=== PATIENT | male | born 1945 | race Caucasian/White ===

== ENCOUNTER 2017-03-16 13:12 | Emergency (ER) | payer MEDICARE, BC ==
[2017-03-16] MEDS ORDERED: Morphine INJ* 4 MG/ML 1 ML SYRINGE IV ONE ×3 (13:29→14:27)
[2017-03-16] MEDS ORDERED: Ondansetron INJ* 2 MG/ML VIAL IV ONE (13:29)
[2017-03-16 14:04] LABS: Hematocrit 45 % (42-52); Hemoglobin 14.5 g/dl (14.0-18.0); Mean Corpuscular HGB Conc 33 g/dl (31-36); Mean Corpuscular Hemoglobin 31 pg (27-31); Mean Corpuscular Volume 94 fL (80-94); Mean Platelet Volume 9 um3 (7.4-10.4); Red Blood Count 4.73 10^6/ul (4.0-5.4); Red Cell Distribution Width 14 % (10.5-15); White Blood Count 11.1 10^3/ul (3.5-10.8)
[2017-03-16 14:16] LABS: Albumin 4.4 g/dL (3.2-5.2); BUN/Creatinine Ratio 17.6 (8-20); C Reactive Protein 1.11 mg/L (< 5.00); Calcium 9.5 mg/dL (8.6-10.3); EGFR Non-African American 66.8 (>60); Globulin 2.8 g/dL (2-4); Potassium 4.2 mmol/L (3.5-5.0); Total Bilirubin 0.5 mg/dL (0.2-1.0); Total Protein 7.2 g/dL (6.4-8.9)
[2017-03-16] MEDS ORDERED: NS 0.9% 1000 ML* 1,000 ML IV ONE (14:45)
[2017-03-16] MEDS ORDERED: fentaNYL* 50 MCG/ML 2 ML VIAL (100 MCG VIAL) IV SLOW PU ONE (14:45)
--- NOTE | 2017-03-16 14:50 | RAD ---
Indication: Ankle pain after a fall Comparison: None. Technique: AP and lateral views right lower leg. Report: On the lateral view of the lower leg and ankle the tibia is displaced anteriorly relative to the talar dome. There is a posterior tibial fracture displaced from the tibia. More proximally there is a spiral fracture of the fibula involving the proximal metaphysis of the bone. There is asymmetric widening of the joint space of the medial malleolus with the tibia displaced medially relative to the talar down. IMPRESSION: Radiographic findings appear to be most consistent with a right lower leg and ankle Maisonneuve fracture.
--- NOTE | 2017-03-16 15:57 | RAD ---
INDICATION: The patient is status post reduction and splint application COMPARISON: Same day radiograph acquired at 1300 hours TECHNIQUE: 3 views of the right ankle were obtained. FINDINGS: Evaluation of the bones is somewhat obscured after application of an external splint. There has been interval reduction of the dislocated tibiotalar joint. A potential posterior tibial fracture is only faintly visible on this radiograph. The ankle mortise appears to be anatomically aligned. IMPRESSION: INTERVAL REDUCTION STATUS POST EXTERNAL SPLINT APPLICATION.
--- NOTE | 2017-03-16 16:03 | CONS ---
CONSULTATION NOTE: DATE OF CONSULT: 03/16/17 - EMERGENCY DEPT HISTORY OF PRESENT ILLNESS: Mr. Joel is a 72-year-old gentleman who was on a step- ladder today around noon. He fell and sustained a fracture dislocation of his right ankle. This was a posterolateral everted injury with a high fibula. He came to the emergency room with the foot still in the dislocated position. Mr. Joel is a 72-year-old diabetic male who has had a 6-part bypass in 2001. He is a diabetic, on metformin. He has sleep apnea. He has a history of kidney stones and he is on 3 different hypertensive medications. SOCIAL HISTORY: He does not smoke, does not drink. He is a retired state patrol police lieutenant. PHYSICAL EXAM: On examination, he is a heavyset male in no acute distress. He is lying on the stretcher with his ankle externally rotated. It is a warm foot. He has intact sensation. DIAGNOSTIC STUDIES/LAB DATA: His radiographs show a PLR 4 type ankle fracture dislocation with a high fibula. Skin is intact. Under local anesthetic with some lidocaine injected into the tibiotalar joint, I reduced the ankle and splinted it. Dr. Crane assisted. Postreduction x-rays show excellent reduction of the tibiotalar joint. The patient will be discharged home for elevation with elective fixation in the OR, schedule to follow. [id number]/[facility] #: [id number] MTDD
--- NOTE | 2017-03-16 16:24 | ED ---
Porfirio Kovacs Alok, scribed for Darwin Crane MD on 03/16/17 at 1329 . Lower Extremity - HPI Summary HPI Summary: 72M presents to the ED with right ankle pain after falling 4-5 feet off a ladder which fell while he was attempting to adjust his AC unit from outside. Pt states that after the ladder fell, the pt landed on his feet and fell forward to his knees, twisting his right ankle in the process. Pt is unsure of which direction he twisted his right ankle. Pt denies impact to back, hip, head , or neck. Pt denies LOC. Pt last ate at 0900. PSHx includes CABG. Pt takes an aspirin. - History of Current Complaint Chief Complaint: EDExtremityLower Stated Complaint: RT ANKLE INJURY Time Seen by Provider: 03/16/17 13:22 Hx Obtained From: Patient Mechanism Of Injury: Fall From Height Of: - 4-5 ft Onset of Pain: Immediate Onset/Duration: Still Present Severity Initially: Moderate Severity Currently: Moderate Timing: Constant Location: Is Discrete @ - right ankle Associated Signs And Symptoms: Positive: Other - right ankle pain. Negative: Syncope Alleviating Factor(s): Other - Allergies/Home Medications Allergies/Adverse Reactions: Allergies Allergy/AdvReac Type Severity Reaction Status Date / Time Atorvastatin [From Lipitor] Allergy MUSCLE Verified 04/09/15 19:55 SPASMS SODIUM PENTOTHAL Allergy STOPPED Uncoded 04/09/15 19:55 BREATHING PMH/Surg Hx/FS Hx/Imm Hx Endocrine/Hematology History: Reports: Hx Diabetes Cardiovascular History: Reports: Hx Coronary Artery Disease - QUADRUPLE CARDIAC BYPASS - 2002, Hx Hypertension - CONTROL WITH MEDICATION, Other Cardiovascular Problems/Disorders Respiratory History: Reports: Hx Sleep Apnea GI History: Reports: Hx Gastroesophageal Reflux Disease - OCCASIONAL ACID REFLUX History: Reports: Hx Kidney Stones - BILATERAL, Other Problems/Disorders - ENLARGE PROSTATE Sensory History: Reports: Hx Contacts or Glasses - GLASSES - READING, Hx Hearing Aid - DOES NOT WEAR Opthamlomology History: Reports: Hx Contacts or Glasses - GLASSES - READING - Surgical History Surgery Procedure, Year, and Place: RENAL STONES LITHO/OPEN HEART. RIO Hx Anesthesia Reactions: Yes - SODIUM PENTOTHAL - STOPPED BREATHING AGE 10 Infectious Disease History: Denies: Traveled Outside the [place] in Last 30 Days - Family History Known Family History: Negative: Cardiac Disease, Hypertension, Diabetes - Social History Occupation: Retired Lives: With Family Alcohol Use: None Substance Use Type: Reports: None Smoking Status (MU): Never Smoked Tobacco Review of Systems Negative: Fever Positive: Other - right ankle pain All Other Systems Reviewed And Are Negative: Yes Physical Exam - Summary Physical Exam Summary: VITAL SIGNS: Reviewed. GENERAL: Patient is an obese male who is lying comfortable in the stretcher. Patient is not in any acute respiratory distress. HEAD AND FACE: No signs of trauma. No ecchymosis, hematomas or skull depressions. No sinus tenderness. EYES: PERRLA, EOMI x 2, No injected conjunctiva, no nystagmus. EARS: Hearing grossly intact. Ear canals and tympanic membranes are within normal limits. MOUTH: Oropharynx within normal limits. NECK: Supple, trachea is midline, no adenopathy, no JVD, no carotid bruit, no c- spine tenderness, neck with full ROM. CHEST: Symmetric, no tenderness at palpation LUNGS: Clear to auscultation bilaterally. No wheezing or crackles. CVS: Regular rate and rhythm, S1 and S2 present, no murmurs or gallops appreciated. ABDOMEN: Soft, non-tender. No signs of distention. No rebound no guarding, and no masses palpated. Bowel sounds are normal. EXTREMITIES: Deformity right ankle and tibiofibular. Good pulses and capillary refill. NEURO: Alert and oriented x 3. No acute neurological deficits. Speech is normal and follows commands. SKIN: Dry and warm Triage Information Reviewed: Yes Vital Signs On Initial Exam: Initial Vital Signs Temp 97.7 F 03/16/17 13:27 Pulse 81 03/16/17 13:27 Resp 18 03/16/17 13:27 BP 121/71 03/16/17 13:27 Pulse Ox 94 03/16/17 13:27 Vital Signs Reviewed: Yes Diagnostics - Vital Signs Vital Signs Temp Pulse Resp BP Pulse Ox 03/16/17 15:30 76 130/67 95 03/16/17 15:00 73 126/72 93 03/16/17 14:50 16 03/16/17 14:31 18 03/16/17 14:30 74 124/64 94 03/16/17 14:02 76 20 112/64 93 03/16/17 14:00 77 94 03/16/17 13:47 16 03/16/17 13:34 138/104 03/16/17 13:31 83 95 03/16/17 13:27 97.7 F 81 18 121/71 94 - Laboratory Lab Results: Lab Results 03/16/17 03/16/17 Range/Units 13:50 13:50 WBC 11.1 H (3.5-10.8) 10^3/ul RBC 4.73 (4.0-5.4) 10^6/ul Hgb 14.5 (14.0-18.0) g/dl Hct 45 (42-52) % MCV 94 (80-94) fL MCH 31 (27-31) pg MCHC 33 (31-36) g/dl RDW 14 (10.5-15) % Plt Count 168 (150-450) 10^3/ul MPV 9 (7.4-10.4) um3 Neut % (Auto) 82.0 (38-83) % Lymph % (Auto) 6.7 L (25-47) % Swift % (Auto) 8.9 (1-9) % Eos % (Auto) 2.2 (0-6) % Baso % (Auto) 0.2 (0-2) % Absolute Neuts (auto) 9.1 H (1.5-7.7) 10^3/ul Absolute Lymphs (auto) 0.7 L (1.0-4.8) 10^3/ul Absolute Monos (auto) 1.0 H (0-0.8) 10^3/ul Absolute Eos (auto) 0.2 (0-0.6) 10^3/ul Absolute Basos (auto) 0 (0-0.2) 10^3/ul Absolute Nucleated RBC 0 10^3/ul Nucleated RBC % 0 Sodium 138 (133-145) mmol/L Potassium 4.2 (3.5-5.0) mmol/L Chloride 105 (101-111) mmol/L Carbon Dioxide 24 (22-32) mmol/L Anion Gap 9 (2-11) mmol/L BUN 19 (6-24) mg/dL Creatinine 1.08 (0.67-1.17) mg/dL Est GFR ( Amer) 86.0 (>60) Est GFR (Non-Af Amer) 66.8 (>60) BUN/Creatinine Ratio 17.6 (8-20) Glucose 137 H (70-100) mg/dL Calcium 9.5 (8.6-10.3) mg/dL Total Bilirubin 0.50 (0.2-1.0) mg/dL AST 28 (13-39) U/L ALT 30 (7-52) U/L Alkaline Phosphatase 83 (34-104) U/L C-Reactive Protein 1.11 (< 5.00) mg/L Total Protein 7.2 (6.4-8.9) g/dL Albumin 4.4 (3.2-5.2) g/dL Globulin 2.8 (2-4) g/dL Albumin/Globulin Ratio 1.6 (1-3) Result Diagrams: 03/16/17 13:50 03/16/17 13:50 Lab Statement: Any lab studies that have been ordered have been reviewed, and results considered in the medical decision making process. - Radiology Lower Extremity XRAY Xray Interpretation: Positive (See Comments) - IMPRESSION: Radiographic findings appear to be most consistent with a right lower leg and ankle Maisonneuve fracture. Radiology Interpretation Completed By: Radiologist Ankle XRAY Xray Interpretation: Positive (See Comments) - IMPRESSION: INTERVAL REDUCTION STATUS POST EXTERNAL SPLINT APPLICATION. Radiology Interpretation Completed By: Radiologist Lower Extremity Course/Dx - Course Course Of Treatment: 72M presents to the ED with right ankle pain after falling 4-5 feet off a ladder which fell while he was attempting to adjust his AC unit from outside. Pt states that after the ladder fell, the pt landed on his feet and fell forward to his knees, twisting his right ankle in the process. Pt is unsure of which direction he twisted his right ankle. Pt denies impact to back, hip, head, or neck. Pt denies LOC. Pt last ate at 0900. PSHx includes CABG. Pt takes an aspirin. Blood work within nml limits except Glucose 137 H. Lower extremity Xray shows "Radiographic findings appear to be most consistent with a right lower leg and ankle Maisonneuve fracture." Dr. Andersen from orthopedics came and reduced fracture. Meantime pt was given 2 doses of Morphine and 1 dose of fentnyl for pain. Post reduction ankle Xray shows "INTERVAL REDUCTION STATUS POST EXTERNAL SPLINT APPLICATION." Ganesh recommended discharge home with FU at his office. Pt is alert and oriented and agrees. - Diagnoses Differential Diagnosis/HQI/PQRI: Positive: Fracture (Closed), Sprain, Strain, Tenosynovitis Provider Diagnoses: Tibia/fibula fracture with dislocation - Physician Notifications Discussed Care Of Patient With: Olivier Andersen - Will come and assist in fracture reduction Time Discussed With Above Provider: 15:18 Discharge - Discharge Plan Condition: Stable Disposition: HOME Prescriptions: HYDROcodone/ACETAMIN 5-325 MG* [Garwood 5-325 TAB*] 1 tab PO Q6H PRN #12 tab MDD 4 tabs/day PRN Reason: Pain Patient Education Materials: Ankle Fracture (ED), Ankle Dislocation (ED) Referrals: Екатерина Trujillo MD [Primary Care Provider] - The documentation as recorded by the Porfirio hwang Alok accurately reflects the service I personally performed and the decisions made by Royce morgan Walter, MD.
[2017-03-16 17:01] VITALS: BP 130/67
== END 2017-03-16 16:54 | disposition home or self-care (01) ==
LOC: ED 13:12
DX: M25.571 Pain in right ankle and joints of right foot (principal); S82.401A Unspecified fracture of shaft of right fibula, initial encounter for closed fracture; W11.XXXA Fall on and from ladder, initial encounter; Y93.9 Activity, unspecified; Y92.9 Unspecified place or not applicable; Y99.9 Unspecified external cause status
CPT/HCPCS: 36415; 80053; 85025; 86140; 96374; 96375; 99285; J2270; J2405; J3010

== ENCOUNTER 2017-03-18 13:57 | Day surgery (SDC) | payer MEDICARE, BC ==
[2017-03-18] MEDS ORDERED: Buffered Lidocaine 0.9% SYRIN* 5 ML/SYR SYRINGE ONE (14:16)
[2017-03-18] MEDS ORDERED: Sodium Citrate/Citric Acid* 15 ML UDC ONE (15:04)
[2017-03-18] MEDS ORDERED: ceFAZolin 2 GM PREMIX(*) 2 GM/50 ML BAG IVPB ONE (15:34)
[2017-03-18] MEDS ORDERED: Midazolam* 1 MG/ML 2 ML VIAL (2 MG) ONE ×2 (15:48→16:09)
[2017-03-18] MEDS ORDERED: Ondansetron INJ* 2 MG/ML VIAL IV PRN (17:14)
--- NOTE | 2017-03-18 18:32 | RAD ---
INDICATION: ORIF right ankle COMPARISON: Right ankle March 16, 2017 FINDINGS: 4.8 seconds of fluoroscopy were provided for the orthopedics department. Fluoroscopic spot imaging of the right ankle were obtained for operative control and show ORIF of the ankle fracture . CPT II Codes: 6045F (fluoro time doc)
[2017-03-18] MEDS ORDERED: oxyCODONE TAB* 5 MG TAB ONE (19:57)
[2017-03-18] MEDS ORDERED: fentaNYL* 50 MCG/ML 2 ML VIAL (100 MCG VIAL) ONE (20:02)
[2017-03-18] MEDS: fentaNYL* 50 MCG/ML 2 ML VIAL (100 MCG VIAL) IV PRN ×4 (20:04→20:41)
[2017-03-18] MEDS ORDERED: Ibuprofen TAB* 600 MG ONE (20:18)
[2017-03-18] MEDS ORDERED: Acetaminophen ADULT LIQ* 650 MG/20.3 ML UDC ONE (20:18)
[2017-03-18] MEDS ORDERED: Morphine INJ* 4 MG/ML 1 ML SYRINGE ONE (20:43)
[2017-03-18 21:34] VITALS: BP 123/69
[2017-03-18] MEDS ORDERED: oxyCODONE TAB* 5 MG TAB PO PRN ×2 (21:43)
[2017-03-18] MEDS ORDERED: Morphine INJ* 2 MG/ML 1 ML SYRINGE IV PRN (21:44)
[2017-03-18] MEDS ORDERED: Acetaminophen TAB* 325 MG PO PRN (21:44)
[2017-03-18] MEDS ORDERED: Ibuprofen TAB* 600 MG PO PRN (21:47)
--- NOTE | 2017-03-19 08:41 | OP ---
DATE OF OPERATION: 03/18/17 - [facility] DATE OF : 41 SURGEON: Olivier Andersen MD BOOT AND SADDLE REPAIR PERSON: Enid Cool PA-C ANESTHESIOLOGIST: Kevin Sousa DO ANESTHESIA: Spinal PRE-OP DIAGNOSIS: PLR4 right ankle fracture. POST-OP DIAGNOSIS: PLR4 right ankle fracture. OPERATIVE PROCEDURE: Internal fixation and reduction of the right syndesmosis. DESCRIPTION OF PROCEDURE: The patient was taken to the operating room where spinal anesthetic and thigh tourniquet administered, in the left lateral decubitus position, we opened up longitudinally over the distal fibula. We incised directly over the anterior aspect of the fibula to visualize the torn syndesmosis. Using a point reduction clamp, we pulled distally, internally rotating and compressing and then pinning this temporarily. We then used a 5- hole Recon plate along the posterolateral aspect of the fibula with four cortical 3.5-mm cortical screws. X-ray intraoperatively showed satisfactory position of the mortise and the hardware. We then irrigated thoroughly closing with 2-0 Vicryl, bobby for the skin, and compression dressing plaster splint applied. [id number]/[facility] #: [id number] MTDD
== END 2017-03-18 21:50 | disposition home or self-care (01) ==
LOC: OR 13:57
PROVIDERS: ATTEND Orthopaedic Surgery
DX: S82.891A Other fracture of right lower leg, initial encounter for closed fracture (principal); E11.8 Type 2 diabetes mellitus with unspecified complications; G47.30 Sleep apnea, unspecified; R94.31 Abnormal electrocardiogram [ECG] [EKG]; W11.XXXA Fall on and from ladder, initial encounter; Y93.9 Activity, unspecified; Y92.9 Unspecified place or not applicable; Z95.1 Presence of aortocoronary bypass graft; Z87.442 Personal history of urinary calculi; Z79.84 Long term (current) use of oral hypoglycemic drugs
CPT/HCPCS: 76000; 93005; A9270-GY; C1713; C1776; J0690; J2250; J2270; J3010

== ENCOUNTER 2017-08-21 06:07 | Day surgery (SDC) | payer MEDICARE, BC ==
[~2017-08-21 06:07] MED LIST: Buffered Lidocaine 0.9% SYRIN* 5 ML/SYR SYRINGE INTRADERM ONE; Dexamethasone IV* 4 MG/ML 1 ML (4 MG) IV SLOW PU ONE
[2017-08-21] MEDS ORDERED: ceFAZolin 1 GM ADVAN(*) 1 GM ADDV.VIAL IVPB ONE (06:40)
[2017-08-21] MEDS ORDERED: ceFAZolin 2 GM PREMIX (*) 2 GM/50 ML BAG IVPB ONE (06:40)
[2017-08-21] MEDS ORDERED: Dexamethasone IV* 4 MG/ML 1 ML (4 MG) ONE ×2 (06:40→06:41)
[2017-08-21] MEDS ORDERED: Buffered Lidocaine 0.9% SYRIN* 5 ML/SYR SYRINGE ONE (06:40)
[2017-08-21] MEDS ORDERED: Chloroprocaine 2%* 20 ML VIAL ONE (07:33)
[2017-08-21] MEDS ORDERED: Propofol* 10 MG/ML 20 ML BTL IV PUSH ONE (07:33)
[2017-08-21] MEDS ORDERED: Midazolam* 1 MG/ML 5 ML VIAL (5 MG) ONE (07:33)
[2017-08-21] MEDS ORDERED: Ondansetron INJ* 2 MG/ML VIAL ONE (07:33)
[2017-08-21] MEDS ORDERED: EPHEDrine (Pressors)* 50 MG/ML VIAL ONE (07:33)
[2017-08-21] MEDS ORDERED: Phenylephrine IV* 40 MCG/ML 10 ML SYRINGE ONE (07:34)
[2017-08-21] MEDS ORDERED: fentaNYL* 50 MCG/ML 2 ML VIAL (100 MCG VIAL) IV PRN (08:23)
[2017-08-21] MEDS ORDERED: Ondansetron INJ* 2 MG/ML VIAL IV PRN (08:23)
[2017-08-21] MEDS ORDERED: DiMENhydriNATE IV* 50 MG/ML VIAL IV PUSH PRN (08:23)
[2017-08-21] MEDS ORDERED: HYDROmorphone INJ* 1 MG/ML CARPUJECT SYRINGE IV PRN (08:23)
[2017-08-21] MEDS ORDERED: oxyCODONE/Acetamin 5/325 MG* TAB ONE (09:53)
[2017-08-21] MEDS: oxyCODONE/Acetamin 5/325 MG* TAB PO PRN ×2 (09:54→09:55)
[2017-08-21 11:33] VITALS: BP 136/75
--- NOTE | 2017-08-21 20:24 | RAD ---
CPT II Codes: 6045F INDICATION: ORIF of the right ankle TECHNIQUE: Intraoperative fluoroscopy was provided during removal of right ankle hardware. FINDINGS: 3 spot films depict right ankle status post removal of hardware. Fluoroscopy time: 8.9 seconds IMPRESSION: As above.
--- NOTE | 2017-08-26 00:29 | OP ---
DATE OF OPERATION: 08/21/17 [facility] DATE OF : 41 SURGEON: Austen Miller MD LAMP WIRER: DREW Bethea. A physician orthodontic technician assistant was required for the length of the procedure for positioning and retraction. ANESTHESIOLOGIST: Ralph Jaramillo MD ANESTHESIA: Spinal anesthesia. PRE-OP DIAGNOSES: 1. Painful, loose hardware, retained, right ankle syndesmosis. 2. Fracture, intraarticular, comminuted, mildly displaced right distal tibial plafond. 3. Status post open reduction internal fixation, right ankle syndesmosis, 03/18, by Dr. Olivier Andersen. POST-OP DIAGNOSES: 1. Painful, loose hardware, retained, right ankle syndesmosis. 2. Fracture, intraarticular, comminuted, mildly displaced right distal tibial plafond. 3. Status post open reduction internal fixation, right ankle syndesmosis, 03/18, by Dr. Olivier Andersen. OPERATIVE PROCEDURE: Removal of hardware, right ankle syndesmosis. INDICATIONS: The patient is a 72-year-old man who sustained a right ankle dislocation with a Maisonneuve fracture on 03/16/17. He underwent an open reduction internal fixation syndesmosis with a lateral plate and 4 syndesmotic screws on 03/18/[address] Olivier Andersen, my partner. The patient had been doing well postoperatively and most recently had been weightbearing as tolerated. There are some questions about the patient's compliance in the early postoperative period. On approximately 08/12/17, the patient noted a new pain about the right ankle. Not associated with a new injury. The pain was present only with weightbearing. There was an increase in soft tissue swelling about the ankle and the patient started limping. The patient has peripheral neuropathy secondary to his diabetes but did not have pain in his foot as much as in the ankle. I saw the patient in clinic on 08/14/17. The patient did have soft tissue swelling about the ankle. Passive dorsiflexion of the ankle caused increased discomfort. X-ray imaging demonstrated lucency about multiple syndesmotic screws and appeared to show an intra-articular tibial plafond fracture. I compared to radiographs from that day compared to prior radiographs and it appeared there certainly had been a fracture distal to the distal most screw. I placed the patient into a tall walking boot in clinic. I signed him up for surgery, removal of hardware. I spoke with Dr. Olivier Andersen to confirm the plan with him. That was actually by text. I ultimately obtained a CT scan of the right ankle to determine if open reduction internal fixation of fracture fragment was feasible. A CT scan was reviewed preoperatively and showed a comminuted intraarticular fracture of the tibial plafond. The displaced fragments were central rather than being directly anterior or posterior. There were also already significant degenerative changes, joint space narrowing about the ankle joint. Therefore, the patient was not a candidate for open reduction internal fixation. Therefore , he was booked only for a removal of hardware. ANTIBIOTICS: Ancef 3 g IV. IV FLUIDS: 1400 cc crystalloid. TOURNIQUET TIME: 27 minutes at 300 mmHg. COMPLICATIONS: None. SPECIMEN: Hardware was extracted and will be processed for return to the patient. IMPLANTS: None. DESCRIPTION OF PROCEDURE: Preoperatively, I reviewed with the patient, the risks and potential complications of the procedure including bleeding, infection , nerve or blood vessel injury, blood clot, ankle pain, stiffness, osteoarthritis. In preoperative holding, I had the patient sign the surgical consent. In preoperative holding, I marked the patient's operative extremity. I noted the patient had a very small scab, several millimeters, about the medial aspect of the distal lower leg. There were some trace, several millimeters of erythema about it. This region in the lower leg was sensate but was not tender to palpation. No clear cellulitis. This was far from the surgical incision planned. The patient was brought back to the operating room and placed supine on the operating room table. General anesthesia was utilized. A tourniquet was placed about the right proximal thigh. The right lower extremity was prepped and draped. A Bone Foam device was placed under the right lower extremity and the right hemipelvis had had blankets placed under it to put the lower extremity in a neutral rotation. Surgical time-out was performed. An Esmarch was applied and the tourniquet was elevated to 300 mmHg. The prior surgical incision scar was noted. I created a new incision on much of the length of the prior incision scar. I exchanged surgical blades and continued through the subcutaneous tissue. I then continued with spreading dissection down to the plate and distal fibula and lateral malleolus. I uncovered the plate using a periosteal elevator. No nerves were encountered. Four screws were removed from the plate. Then, syndesmotic plate was removed. I used a small curette and curetted the tracks of all 4 screws through the fibula and tibia to encourage healing and remove any fibrous material present. I performed a gravity stress test and a Cotton test. Both showed no increased gapping, significant, of the medial clear space or of the tibia-fibular clear space and overlapped spaces. Irrigation of the wound. Closure of some deep tissue with figure-of-8 stitches using Vicryl 2-0 suture. This was in deep fascia. Closure of the subcutaneous tissue with buried simple stitches using Vicryl 3-0 suture. Closure of the skin with bobby. Xeroform was applied followed by sterile 4x4's, followed by sterile Webril, followed by nonsterile Webril. I then placed a splint with first a posterior component and then a sugar tong medial and lateral component, overwrapped in Gio bandage. The patient was awakened and transferred to the PACU. DISPOSITION: The patient is to be non or minimal weight bearing. Percocet as needed for pain control. Keflex for 7 days for infection prophylaxis. The patient will follow up with me in 10 to 14 days postoperatively. This will be for wound check, removal of bobby. While I generally place removal of hardware, Syndesmotic screw patients into tall walking boots postoperatively, I chose to place this patient in a splint. That is because he also has a fracture of the tibial plafond and I thought it preferable to slow down the patient. The patient and his both admitted preoperatively that the patient would likely not be compliant with wearing a tall walking boot. [id number]/[facility] #: [id number] [facility] HOSPITALTracey
== END 2017-08-21 12:00 | disposition home or self-care (01) ==
LOC: OR 06:07
PROVIDERS: ATTEND Orthopaedic Surgery
DX: T84.84XA Pain due to internal orthopedic prosthetic devices, implants and grafts, initial encounter (principal); S82.871A Displaced pilon fracture of right tibia, initial encounter for closed fracture; S82.861D Displaced Maisonneuve's fracture of right leg, subsequent encounter for closed fracture with routine healing; E11.40 Type 2 diabetes mellitus with diabetic neuropathy, unspecified; Z79.84 Long term (current) use of oral hypoglycemic drugs; I10 Essential (primary) hypertension; I25.2 Old myocardial infarction; G47.33 Obstructive sleep apnea (adult) (pediatric); Z95.1 Presence of aortocoronary bypass graft; X58.XXXD Exposure to other specified factors, subsequent encounter; Y92.9 Unspecified place or not applicable; Y79.2 Prosthetic and other implants, materials and accessory orthopedic devices associated with adverse incidents; X58.XXXA Exposure to other specified factors, initial encounter; Z88.8 Allergy status to other drugs, medicaments and biological substances
CPT/HCPCS: 76000; 88300; A9270-GY; J0690; J1100; J2250; J2400; J2405; J2704

== ENCOUNTER 2018-09-16 12:08 | Day surgery (SDC) | payer MEDICARE, BC ==
[~2018-09-16 12:08] MED LIST changes: -Dexamethasone IV* 4 MG/ML 1 ML (4 MG) IV SLOW PU ONE; +Famotidine IV* 10 MG/ML 2 ML (20 mg) IV ONE; +Lactated Ringers 1000 ML Bag* 1,000 ML IV SCH; +Midazolam* 1 MG/ML 5 ML VIAL (5 MG) ONE; +fentaNYL* 50 MCG/ML 2 ML VIAL (100 MCG VIAL) ONE
[2018-09-16] MEDS ORDERED: oxyCODONE/Acetamin 5/325 MG* TAB PO PRN (13:15)
[2018-09-16] MEDS ORDERED: HYDROmorphone INJ1* 1 MG/ML SYRINGE IV PRN (13:15)
[2018-09-16] MEDS ORDERED: Naloxone* 0.4 MG/ML 1 ML VIAL IV PRN (13:15)
[2018-09-16] MEDS ORDERED: DiMENhydriNATE IV* 50 MG/ML VIAL IV PUSH PRN (13:15)
[2018-09-16] MEDS ORDERED: Acetaminophen TAB* 325 MG PO PRN (13:18)
[2018-09-16] MEDS ORDERED: Famotidine IV* 10 MG/ML 2 ML (20 mg) ONE (13:21)
[2018-09-16] MEDS ORDERED: Acetaminophen TAB* 325 MG ONE (13:21)
[2018-09-16] MEDS ORDERED: ceFAZolin 2 GM PREMIX in ORs 2 GM/50 ML BAG IVPB ONE (13:22)
[2018-09-16] MEDS ORDERED: ceFAZolin 1 GM ADVAN(*) 1 GM ADDV.VIAL IVPB ONE (13:22)
[2018-09-16] MEDS ORDERED: Bupivacaine 0.25% SDV PF* 10 ML VIAL INJ ONE (14:37)
[2018-09-16] MEDS ORDERED: Ondansetron INJ* 2 MG/ML VIAL ONE (15:12)
[2018-09-16] MEDS ORDERED: Propofol* 10 MG/ML 20 ML BTL ONE (15:12)
[2018-09-16] MEDS ORDERED: Ketorolac INJ* 30 MG/ML 1 ML VIAL ONE (15:20)
[2018-09-16] MEDS ORDERED: Lidocaine 2% PF * 5 ML VIAL ONE (15:36)
[2018-09-16 16:12] VITALS: BP 136/67
--- NOTE | 2018-09-16 17:57 | OP ---
Operative Report - Blank - Operative Report Date of Operation: 09/16/18 Note: PATIENT: Pipe Joel DATE OF : 1945 DATE OF SURGERY: 09/16/2018 SURGEON: Leander Flores MD EARLY CHILDHOOD TEACHER ASSISTANT: DREW Keating, whos assistance was necessary for positioning, retraction, help with instrumentation, and closure. ANESTHESIOLOGIST: Dr. 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 Right fluoroscopically-guided tibiotalar joint aspiration 2. Right distal tibia deep bone biopsies ANESTHESIA: MAC IMPLANTS: none TOURNIQUET TIME: none SPECIMENS: none ESTIMATED BLOOD LOSS: minimal COMPLICATIONS: none STATUS: Stable from the operating room to the recovery room and then home INDICATIONS FOR PROCEDURE: Pipe has developed rapid right ankle arthritis with concern for infection/osteomyelitis versus Charcot neuroarthropathy. We discussed obtaining deep bone biopsies and a right ankle aspiration to coating machine helper in the diagnosis. Both operative and non-operative treatment alternatives were reviewed. Further, the nature and risks of surgery were reviewed in careful detail. Our discussions regarding the risks of surgery included, but were not limited to, infection, wound problems, nerve injury, neuroma, RSD, persistent symptoms, blood clot, need for further surgery, failure of the surgery, need for amputation, and even the remote chance of catastrophic complication. DESCRIPTION OF PROCEDURE: The patient was seen in the preoperative holding unit and informed written consent was obtained. The appropriate extremity was marked. The patient was then brought to the operating room and carefully positioned on the operating room table. Anesthesia was induced. All bony prominences were padded with great care. A chlorhexidine based pre-scrub was performed followed by a chloraprep prep and drape in standard sterile fashion. A surgical safety pause was then conducted in which we confirmed the appropriate patient, extremity, planned procedure, availability of equipment, indication and administration of prophylactic antibiotics (to be given after obtaining the biopsies), and DVT prophylaxis in the form of a compression boot on the non-surgical extremity. I began by using an 18-gauge needle and syringe to aspirate the right tibiotalar joint under fluoroscopic guidance. Approximately 1 cc of bloody fluid was obtained and sent to microbiology. I then used fluoroscopy to place an approximately 2 cm incision over the anterior aspect of the distal medial tibia. I used blunt dissection to get down to the tibial bone. An 8-gauge Jamshidi needle was then used to obtain three deep core bone biopsies. Two of these were sent to microbiology and one was sent to pathology. Hemostasis was then obtained. The wound was copiously irrigated and meticulously closed in layers utilizing 3- 0 Monocryl and 3-0 nylon for the skin. A sterile dressing was then applied. The patient was then awakened from anesthesia and transferred to the recovery room in stable condition. There were no complications. All needle and sponge counts were correct at the end of the case. ATTESTATION: I attest I was present and scrubbed and performed the critical portions of the procedure myself. POSTOPERATIVE PLAN: We will follow the cultures and pathology and he will followup in one to 2 weeks.
== END 2018-09-16 17:00 | disposition home or self-care (01) ==
LOC: OR 12:08
PROVIDERS: ATTEND Orthopaedic Surgery
DX: M14.671 Charcot's joint, right ankle and foot (principal); M19.171 Post-traumatic osteoarthritis, right ankle and foot; I73.9 Peripheral vascular disease, unspecified; E11.9 Type 2 diabetes mellitus without complications; Z79.84 Long term (current) use of oral hypoglycemic drugs; I25.10 Atherosclerotic heart disease of native coronary artery without angina pectoris; I10 Essential (primary) hypertension; Z95.1 Presence of aortocoronary bypass graft; Z87.442 Personal history of urinary calculi
CPT/HCPCS: 87070; 87205; 87640; 87641; 88304; 88311; A9270-GY; J0690; J1885; J2250; J2405; J2704; J3010; J3490

== ENCOUNTER 2019-02-28 20:24 | Emergency (ER) | payer MEDICARE, BC ==
--- OUTSIDE RECORDS SUMMARY | 2019-02-28 20:30 | XMS REPORT | Continuity of Care Document ---
:1945 External Reference #:[id number] Author Name NargisRabia crawley Care Team Providers Name Role Phone Екатерина Trujillo MD Primary Care Physician Unavailable Payers Date Identification Numbers Payment Provider Subscriber Policy Number: [id number] Medicare Toni García PayID: [id number] [address] [place] [address] Policy Number: [id number] [facility] Toni García PayID: [id number] [address] [place] [address] Problems Active Problems Provider Date Peripheral vascular disease Leander Flores MD Onset: 09/08/2018 Family History Date Family Member(s) Observation Comments General Unknown Social History Type Date Description Comments Sex Unknown Lives With Occupation Retired ETOH Use Denies alcohol use Tobacco Use Start: Unknown Patient has never smoked Smoking Status Reviewed: 02/16/19 Patient has never smoked Exercise Type/Frequency Does not exercise Allergies, Adverse Reactions, Alerts Active Allergies Reaction Severity Comments Date Codeine 02/20/2018 Thiopental Sodium pentothal 02/20/2018 Medications Active Medications SIG Qnty Indications Ordering Date Provider Meloxicam take one tablet by 90tabs Olivier Andersen, 05/27/2018 15mg mouth every day with M.D. Tablets food Gabapentin 1 tab by mouth twice 60caps Olivier Andersen, 03/25/2018 300mg a day M.D. Capsules Ankle Stabilizer Disp 1 Chava Brace 1units T84.84xD Austen F 12/10/2017 Right Foot MD Paul Mis Voltaren apply 4 grams to 100gm T84.84xD Leander Flores, 12/10/2017 1% Gel affected areas before exacerbating activities. Ibuprofen 1 by mouth three 60tabs Olivier Andersen, 08/13/2017 600mg times a day as M.D. Tablets needed Losartan Potassium Unknown Glipizide ER Unknown Metformin HCL Unknown Metoprolol Unknown Succinate ER Tamsulosin HCL Unknown Omeprazole Unknown History Medications Oxycodone HCL 1 tab every 4-6 10tabs Leander Flores MD 09/16/2018 - 5mg hours as needed 11/03/2018 Tablets for pain mdd 4 Keflex 1 cap by mouth 21caps Austen Miller, 08/21/2017 - 500mg Capsules three times a MD 09/02/2017 day Oxycodone-Acetaminoph 1-2 tabs by 30tavelma Miller, 08/21/2017 - en mouth every 4 MD 09/30/2017 5-325mg Tablets hours for pain No Active Medications Unknown 04/19/2017 - 08/13/2017 Oxycodone HCL 1-2 tabs by 40tabs Olivier Andersen, 03/18/2017 - 5mg mouth every 4-6 M.D. 03/30/2017 Tablets hours as needed Medications Administered in Office Medication SIG Qnty Indications Ordering Provider Date Depomedrol 40MG Austen Miller MD 10/28/2017 Injection Vital Signs Date Vital Result Comment 02/16/2019 1:48pm Height 70 inches 5'10" Weight 281.00 lb BP Systolic 131 mmHg BP Diastolic 78 mmHg Respiratory Rate 17 /min Body Temperature 98.9 F Pain Level 4 BMI (Body Mass Index) 40.3 kg/m2 12/16/2018 12:57pm Height 70 inches 5'10" Weight 281.00 lb BP Systolic 142 mmHg BP Diastolic 76 mmHg Respiratory Rate 16 /min Body Temperature 98.7 F Pain Level 7 BMI (Body Mass Index) 40.3 kg/m2 11/03/2018 1:02pm Height 70 inches 5'10" Weight 281.00 lb BP Systolic 128 mmHg BP Diastolic 70 mmHg Pain Level 6 BMI (Body Mass Index) 40.3 kg/m2 10/01/2018 1:11pm Height 70 inches 5'10" Heart Rate 94 /min BP Systolic 138 mmHg BP Diastolic 70 mmHg Respiratory Rate 18 /min Body Temperature 98.4 F Pain Level 5 09/08/2018 1:40pm Height 70 inches 5'10" Weight 277.00 lb Heart Rate 74 /min Respiratory Rate 17 /min Body Temperature 98.8 F Pain Level 4 BMI (Body Mass Index) 39.7 kg/m2 08/26/2018 9:30am Height 70 inches 5'10" Weight 277.00 lb Heart Rate 76 /min Respiratory Rate 18 /min Body Temperature 98.4 F Pain Level 4 BMI (Body Mass Index) 39.7 kg/m2 08/12/2018 9:04am Height 70 inches 5'10" Heart Rate 72 /min BP Systolic 130 mmHg BP Diastolic 82 mmHg Body Temperature 98.7 F Pain Level 3 06/24/2018 9:33am Height 70 inches 5'10" Weight 270.00 lb Heart Rate 76 /min BP Systolic 132 mmHg BP Diastolic 78 mmHg Respiratory Rate 12 /min Pain Level 3 BMI (Body Mass Index) 38.7 kg/m2 05/27/2018 11:40am Height 70 inches 5'10" Weight 270.00 lb Heart Rate 80 /min BP Systolic 126 mmHg BP Diastolic 74 mmHg Respiratory Rate 14 /min Pain Level 3 BMI (Body Mass Index) 38.7 kg/m2 03/25/2018 11:26am Height 70 inches 5'10" Heart Rate 76 /min BP Systolic 126 mmHg BP Diastolic 80 mmHg Respiratory Rate 16 /min Body Temperature 98.0 F Pain Level 3 02/20/2018 10:19am Height 70 inches 5'10" Weight 270.00 lb Heart Rate 78 /min BP Systolic Sitting 122 mmHg BP Diastolic Sitting 80 mmHg Respiratory Rate 18 /min Body Temperature 98.0 F Pain Level 7 BMI (Body Mass Index) 38.7 kg/m2 01/28/2018 3:03pm Height 70 inches 5'10" Weight 270.00 lb Heart Rate 74 /min BP Systolic 142 mmHg BP Diastolic 80 mmHg Respiratory Rate 13 /min Pain Level 5 BMI (Body Mass Index) 38.7 kg/m2 12/10/2017 2:56pm Height 70 inches 5'10" Weight 270.00 lb Heart Rate 95 /min Respiratory Rate 14 /min Body Temperature 98.2 F Pain Level 5 BMI (Body Mass Index) 38.7 kg/m2 10/28/2017 3:19pm Height 70 inches 5'10" Weight 270.00 lb BMI (Body Mass Index) 38.7 kg/m2 10/01/2017 2:55pm Height 70 inches 5'10" Weight 270.00 lb BP Systolic 131 mmHg BP Diastolic 72 mmHg Respiratory Rate 15 /min Body Temperature 98.1 F Pain Level 5 BMI (Body Mass Index) 38.7 kg/m2 09/03/2017 10:27am Height 70 inches 5'10" Weight 284.00 lb Heart Rate 82 /min BP Systolic 131 mmHg BP Diastolic 75 mmHg Body Temperature 97.8 F Pain Level 3 BMI (Body Mass Index) 40.7 kg/m2 07/30/2017 11:28am Height 70 inches 5'10" Weight 284.00 lb Heart Rate 84 /min BP Systolic 120 mmHg BP Diastolic 80 mmHg Body Temperature 98.1 F Pain Level 5 BMI (Body Mass Index) 40.7 kg/m2 05/30/2017 10:20am Height 70 inches 5'10" Weight 270.00 lb BP Systolic 128 mmHg BP Diastolic 88 mmHg Respiratory Rate 20 /min Body Temperature 97.8 F Pain Level 2 BMI (Body Mass Index) 38.7 kg/m2 05/10/2017 12:59pm Height 70 inches 5'10" Weight 270.00 lb BP Systolic 143 mmHg BP Diastolic 81 mmHg Body Temperature 97.3 F Pain Level 2 BMI (Body Mass Index) 38.7 kg/m2 04/19/2017 2:10pm Height 70 inches 5'10" Weight 270.00 lb BP Systolic 128 mmHg BP Diastolic 70 mmHg Body Temperature 98.1 F Pain Level 2 BMI (Body Mass Index) 38.7 kg/m2 04/05/2017 2:21pm Height 70 inches 5'10" Weight 270.00 lb Heart Rate 80 /min BP Systolic 120 mmHg BP Diastolic 80 mmHg Respiratory Rate 20 /min Body Temperature 98.4 F Pain Level 4 BMI (Body Mass Index) 38.7 kg/m2 03/26/2017 1:58pm Height 70 inches 5'10" Weight 270.00 lb Heart Rate 67 /min BP Systolic 115 mmHg BP Diastolic 69 mmHg Body Temperature 97.0 F Pain Level 5 BMI (Body Mass Index) 38.7 kg/m2 Results Test Date Facility Test Result H/L Range Note Laboratory test 09/16/2018 [facility] Point of Care 142 mg/dL High 70-100 [address] [place] [address] [phone] Laboratory test 09/16/2018 [facility] Point of Care 112 mg/dL High 70-100 [address] [place] [address] [phone] Laboratory test 09/16/2018 [facility] Tissue Culture SEE RESULT [address] & [place] [address] [phone] Body Fluid C&S 09/16/2018 [facility] Body Fluid Cult SEE RESULT [address] [place] [address] [phone] Laboratory test 09/16/2018 [facility] Surgical SEE RESULT [address] [place] [address] [phone] Laboratory test 08/28/2018 [facility] Blood Urea 30 mg/dL High 6-[address] [place] [address] [phone] Hemoglobin A1c (Glyco HGB) 6.7 % High 4.0-5.6 6 C Reactive Protein 10.14 mg/L High <8.01 Erythrocyte Sed Rate 25 mm/Hr N 0-40 CBC Auto 08/28/2018 [facility] White Blood 11.2 10^3/uL High 3.5-10.[address] [place] [address] [phone] Red Blood Count 4.32 10^6/uL N 4.00-5.40 Hemoglobin 14.0 g/dL N 14.0-18.0 Hematocrit 41 % Low 42-52 Mean Corpuscular Volume 96 fL High 80-94 Mean Corpuscular Hemoglobin 32 pg High 27-31 Mean Corpuscular HGB Conc 34 g/dL N 31-36 Red Cell Distribution Width 14 % N 10.5-15 Platelet Count 177 10^3/uL N 150-450 Mean Platelet Volume 8.6 fL N 7.4-10.4 Abs Neutrophils 8.1 10^3/uL High 1.5-7.7 Abs Lymphocytes 1.4 10^3/uL N 1.0-4.8 Abs Monocytes 1.2 10^3/uL High 0-0.8 Abs Eosinophils 0.5 10^3/uL N 0-0.6 Abs Basophils 0 10^3/uL N 0-0.2 Abs Nucleated RBC 0 10^3/uL Granulocyte % 72.4 % Lymphocyte % 12.3 % Monocyte % 10.9 % Eosinophil % 4.2 % Basophil % 0.2 % Nucleated Red Blood Cells % 0 Laboratory test 08/21/2017 [facility] Point of Care 169 mg/dL High 70-100 [address] [place] [address] [phone] Laboratory test 08/21/2017 [facility] Surgical SEE RESULT [address] [place] [address] [phone] Laboratory test 03/18/2017 [facility] Point of Care 117 mg/dL High 74-106 [address] [place] [address] [phone] Laboratory test 03/18/2017 [facility] Point of Care 114 mg/dL High 74-106 [address] [place] [address] [phone] Registered Radiologic Technologist: [id number] Registered Radiologic Technologist: [id number] 3 SEE RESULT BELOW Name: TONI GARCÍA : [address]: Leander Flores MD Acct: [id number] Unit: [id number] AGE: 73 Location: OR Re09/16/18 SEX: M Status: JOHNATHAN NEGRON SPEC: [id number] TIMO: 09/16/18-1535 [facility] DR: Leander Flores MD REQ: [id number] RECD: 09/16/18 STATUS: JACY MONROY DR: Екатерина Trujillo MD _ SOURCE: TISSUE SPDESC:ANKLE RHT ORDERED: Tissue Cult/GS Procedure Result Reported Site Tissue Gram Stain Final 09/16/18- 2038 ML 3+ Neutrophils No Organisms Seen Preparation By Cytospin Smear Tissue Culture Final 09/20/18- 847 ML No Growth Day 4 * ML - Main Lab . END OF REPORT DEPARTMENT OF PATHOLOGY, [address] [place] [address] Yovany Montague M.D. Director [facility] # [id number] 4 SEE RESULT BELOW Name: TONI GARCÍA : [address]: Leander Flores MD Acct: [id number] Unit: [id number] AGE: 73 Location: OR Re09/16/18 SEX: M Status: JOHNATHAN SDC SPEC: [id number] TIMO: 09/16/18 [facility] DR: Leander Flores MD REQ: [id number] RECD: 09/16/18 STATUS: JACY MONROY DR: Екатерина Trujillo MD _ SOURCE: JOINT FLUI SPDESC:ANKLE RHT ORDERED: BF Cult/GS, MRSA/SA SSTI Procedure Result Reported Site Body Fluid Gram Stain Final 09/16/18- 2033 ML 3+ Neutrophils No Organisms Seen Preparation By Direct Smear Body Fluid Culture Final 09/20/18- 0847 ML No Growth Day 4 MRSA/S. aureus SSTI PCR Final 09/16/18- 2154 ML Organism 1 MRSA NEGATIVE Organism 2 S.AUREUS NEGATIVE * ML - Main Lab . END OF REPORT DEPARTMENT OF PATHOLOGY, [address] [place] [address] Yovany Montague M.D. Director [facility] # [id number] 5 SEE RESULT BELOW Name: TONI GARCÍA : [address]: Leander Flores MD Acct: [id number] Unit: [id number] AGE: 73 Location: OR Re09/16/18 SEX: M Status: JOHNATHAN NEGRON SPEC: [id number] TIMO: 09/16/18-[address]: Leander Flores MD REQ: [id number] RECD: 09/16/18 STATUS: SOUT _ ORDERED: Porsche, LEVEL 3 FINAL DIAGNOSIS Bone, right distal tibia, biopsy: -- Woven/reactive bone with degenerated cartilage. -- No features of acute or chronic osteomyelitis are identified. PRE-OPERATIVE DIAGNOSIS Severe right post traumatic ankle arthritis GROSS DESCRIPTION The specimen is received in formalin labeled, Right Distal Tibial Bone Biopsy , and consists of a 0.9 x 0.4 cm mcnulty-brown bone core which is submitted entirely in one cassette following decalcification. Signed by and Reported on: Yovany Montague MD [id number] END OF REPORT DEPARTMENT OF PATHOLOGY, [address] [place] [address] Yovany Montague M.D. Director [facility] # [id number] 6 Therapeutic target for the treatment of diabetes mellitus patients is <7% HBA1C, and in selective patients <6.0%. Please refer to [place] [employer] diabetic care guidelines for further information. 7 Registered Radiologic Technologist: [id number] SEE RESULT BELOW Name: TONI GARCÍA : [address]: Austen Miller MD Acct: [id number] Unit: [id number] AGE: 72 Location: OR Re08/21/17 SEX: M Status: DEP SD SPEC: [id number] TIMO: 08/21/17- SUBM DR: Austen Miller MD REQ: [id number] RECD: 08/21/17 STATUS: SOUT _ ORDERED: LEVEL 1 FINAL DIAGNOSIS Ankle, right, hardware removal: Foreign body (orthopedic hardware) (Gross diagnosis). PRE-OPERATIVE DIAGNOSIS Displaced Maisoneuve?s fracture of right leg GROSS DESCRIPTION The specimen is received fresh labeled, Right Ankle Removed Hardware, and consists of a 7.0 by up to 1.0 x 0.3 cm silver metallic elongated plate with multiple ovoid holes. The following inscription is identified: [phone] [id number]. Received separately in the same container are four silver metallic threaded Nathan-headed screws ranging from 5.0 x 0.3 cm to 5.6 x 0.3 cm. Per established hospital medical staff protocol, no tissue is submitted. Gross only. Signed (signature on file) Yovany Montague MD 1559 END OF REPORT * ML=Testing performed at Main Lab DEPARTMENT OF PATHOLOGY, [address], [place], [place] [address] Yovany Montague M.D. Director [facility] # [id number] Registered Radiologic Technologist: [id number] Registered Radiologic Technologist: [id number] Procedures Date Code Description Status 09/16/2018 Inject/Drain Joint/Bursa Intermediate W/O US Completed 09/16/2018 Inject/Drain Joint/Bursa Intermediate W/O US Completed 09/16/2018 Excise Biopsy Bone Deep Completed 09/16/2018 Excise Biopsy Bone Deep Completed 10/28/2017 Inject/Drain Joint/Bursa Intermediate W/O US Completed 08/21/201778950 Removal Implant Deep Wire,Screw Nail,Rogelio Or Plate Completed 08/21/201779027 Removal Implant Deep Wire,Screw Nail,Rogelio Or Plate Completed 04/05/2017 92503 Short Leg Cast Completed 03/26/2017 17441 Short Leg Cast Completed 03/18/2017 59222 EKG, Interpretation Only Completed 03/18/2017 86157 Open TX Of Distaltibiofibular JT Disruption W Or W/O Completed Fixation 03/18/2017 47868 Open TX Of Distaltibiofibular JT Disruption W Or W/O Completed Fixation Encounters Type Date Location Provider Dx Diagnosis Office Visit 12/16/2018 Lida Flores, M19.171 Post-traumatic 1:00p [facility] Brandyn ECHAVARRIA osteoarthritis, right ankle and foot M14.671 Charcot's joint, right ankle and foot Z98.890 Other specified postprocedural states Office Visit 09/08/2018 1:45p Kelli Sweeney4.671 [facility] MD cuevas right C.M.A. 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 right ankle and foot M14.671 Charcot's joint, right ankle and foot Office Visit 07/01/2018 1:30p [facility] Cierra Colvin, L30.9 Dermatitis, unspecified L82.1 Other seborrheic keratosis Office Visit 06/24/2018 Orthopedic Olivier Pereira9.171 Post-traumatic 9:00a Services [facility] Lida Andersen osteoarthritis, C.M.A. right ankle and foot Office Visit 05/30/2018 [facility] Cierra L30.9 Dermatitis, 2:50p MD Vinicius unspecified Office Visit 05/27/2018 Orthopedic Olivier Pereira9.171 Post-traumatic 11:30a [facility] Lida Andersen osteoarthritis, C.M.A. right ankle and foot M14.671 Charcot's joint, right ankle and foot L20.9 Atopic dermatitis, unspecified Office Visit 03/25/2018 11:15a Orthopedic Olivier M14.671 Charcot's joint, [facility] Lida Andersen right ankle and C.M.A. foot Office Visit 02/20/2018 10:30a Orthopedic Olivier Pereira4.671 Charcot's joint, [facility] Lida Andersen right ankle and C.M.A. foot Office Visit 01/28/2018 2:30p Orthopedic Austen Pavon T84.84xD Pain due to Services Of MD Paul internal C.M.A. 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 leg, subs for clos fx inocencia hortonn heal M25.571 Pain in right ankle and joints of right foot T84.84xA Pain due to internal orthopedic prosth dev/grft, init Office Visit 07/30/2017 Orthopedic Olivier S82.861D Displ Omega'duane 11:15a Services [facility] Lida Andersen fx r leg, subs for C.M.A. clos fx w soln heal Office Visit 03/16/2017 Orthopedic Olivier S93.401A Sprain of 8:08a Services Of Lida Andersen unspecified C.M.A. ligament of right ankle, init encntr Plan of Treatment Future Appointment(s):03/30/2019 1:30 pm - Leander Flores MD at [facility]02/16/2019 - Leander Flores, MDM14.671 Charcot's joint, right ankle and footNew Xrays:Ankle Right 3+VWS, Ordered: 02/16/19Ankle Right 3+VWS, Ordered: 02/16/19Follow up:Follow Up: 6 weeks
[2019-02-28 20:35] VITALS: BP 142/81
[2019-02-28] MEDS ORDERED: Sulfamethox/Trimethoprim DS 800/160* TAB PO ONE (20:47)
--- NOTE | 2019-02-28 20:47 | UC ---
Hand/Wrist HPI - HPI Summary HPI Summary: right third finger--couple days of redness and swelling around nail---has been treating with bactroban and "new skin"---worsening pain and redness---no streaking full ROM - History Of Current Complaint Chief Complaint: UCSkin Stated Complaint: INFECTED FINGER Time Seen by Provider: 02/28/19 20:40 Hx Obtained From: Patient ?: No Mechanism Of Injury: none Onset/Duration: Gradual Onset, Lasting Days - 2-3, Worse Since - today Pain Intensity: 4 Pain Scale Used: 0-10 Numeric Character Of Pain: Aching, Throbbing Alleviating Factor(s): Nothing Associated Signs And Symptoms: Positive: Swelling, Redness - Allergies/Home Medications Allergies/Adverse Reactions: Allergies Allergy/AdvReac Type Severity Reaction Status Date / Time atorvastatin Allergy Severe Muscle Verified 02/28/19 20:36 Ache AND SPASMS codeine Allergy Intermediate GI Upset Verified 02/28/19 20:36 doxycycline Allergy Unknown Unknown Verified 02/28/19 20:36 Reaction Details SODIUM PENTOTHAL Allergy Severe STOPPED Uncoded 02/28/19 20:36 BREATHING Home Medications: Home Medications Cyanocobalamin (Vitamin B-12) [Vitamin B-12] 1,000 mcg PO EVERY OTHER DAY [History Confirmed 02/28/19] PMH/Surg Hx/FS Hx/Imm Hx Previously Healthy: No Endocrine History: Diabetes, Dyslipidemia Cardiovascular History: Hypertension GI/ History: Gastroesophageal Reflux - Surgical History Surgical History: Yes Surgery Procedure, Year, and Place: RENAL STONES LITHO;. OPEN HEART 2000 MULTIPLE BYPASS GRAPHS WITH VEINS FROM LEGS;. CHOLECYSTECTOMY;. RIGHT ANKLE HARDWARE AND REMOVAL;. TONSILLECTOMY AGE 10; - Family History Known Family History: Negative: Cardiac Disease, Hypertension, Diabetes - Social History Occupation: Retired Lives: With Family Alcohol Use: None Substance Use Type: None Smoking Status (MU): Never Smoked Tobacco Have You Smoked in the Last Year: No Review of Systems All Other Systems Reviewed And Are Negative: Yes Constitutional: Positive: Negative Skin: Positive: Other - irratated skin right 3rd finger nail Eyes: Positive: Negative ENT: Positive: Negative Respiratory: Positive: Negative Cardiovascular: Positive: Negative Gastrointestinal: Positive: Negative Genitourinary: Positive: Negative Motor: Positive: Negative Neurovascular: Positive: Negative Musculoskeletal: Positive: Arthralgia - left third finger nail Neurological: Positive: Negative Psychological: Positive: Negative Is Patient Immunocompromised?: No Physical Exam Triage Information Reviewed: Yes Appearance: Well-Appearing, No Pain Distress, Well-Nourished Vital Signs: Initial Vital Signs Temp 97.7 F 02/28/19 20:31 Pulse 79 02/28/19 20:31 Resp 16 02/28/19 20:31 BP 142/81 02/28/19 20:31 Pulse Ox 95 02/28/19 20:31 Vital Signs Reviewed: Yes Eye Exam: Normal Eyes: Positive: Conjunctiva Clear ENT Exam: Normal ENT: Positive: Normal ENT inspection, Hearing grossly normal. Negative: Trismus , Muffled voice, Hoarse voice, Dental tenderness, Sinus tenderness Dental Exam: Normal Neck exam: Normal Neck: Positive: Supple, Nontender Respiratory Exam: Normal Respiratory: Positive: Chest non-tender, No respiratory distress, No accessory muscle use Cardiovascular Exam: Normal Cardiovascular: Positive: RRR, Pulses Normal, Brisk Capillary Refill Musculoskeletal Exam: Normal Musculoskeletal: Positive: Strength Intact, ROM Intact, Edema @ - around nail of right third finger Neurological Exam: Normal Neurological: Positive: Alert, Muscle Tone Normal Psychological Exam: Normal Psychological: Positive: Normal Response To Family Skin Exam: Normal Skin: Positive: Other - open area around nail Hand/Wrist Course/Dx - Course Course Of Treatment: stop using new skin, bactrim ds bid for 7 days-- warm soaks re-check prn and follow BP with pcp in next 2 weeks - Differential Dx/Diagnosis Provider Diagnosis: Hypertension, Paronychia, Pyogenic granuloma Discharge - Sign-Out/Discharge Documenting (check all that apply): Patient Departure All imaging exams completed and their final reports reviewed: No Studies - Discharge Plan Condition: Stable Disposition: HOME Prescriptions: Sulfamethox/Trimethoprim DS* [Bactrim DS 800/160 TAB*] 1 tab PO BID #13 tab Patient Education Materials: Paronychia (ED), Hypertension (ED), Warm Compress or Soak (ED) Referrals: Екатерина Trujillo MD [Primary Care Provider] - 2 Weeks - Billing Disposition and Condition Condition: STABLE Disposition: Home
== END 2019-02-28 21:06 | disposition home or self-care (01) ==
LOC: UCEAST 20:24
DX: I10 Essential (primary) hypertension (principal); L03.011 Cellulitis of right finger; L98.0 Pyogenic granuloma; E11.9 Type 2 diabetes mellitus without complications
CPT/HCPCS: 99212; A9270-GY; G0463

== ENCOUNTER 2020-03-29 06:01 | Inpatient (IN) ==
[~2020-03-29 06:01] MED LIST changes: -Buffered Lidocaine 0.9% SYRIN* 5 ML/SYR SYRINGE INTRADERM ONE; +Buffered Lidocaine 1% SYRIN 1 ml INTRADERM ONE; -Famotidine IV* 10 MG/ML 2 ML (20 mg) IV ONE; -Lactated Ringers 1000 ML Bag* 1,000 ML IV SCH; +Lactated Ringers 1000 ml BAG 1,000 ML IV SCH; -Midazolam* 1 MG/ML 5 ML VIAL (5 MG) ONE; -fentaNYL* 50 MCG/ML 2 ML VIAL (100 MCG VIAL) ONE
[2020-03-29] MEDS ORDERED: ceFAZolin 2 GM PREMIX in ORs 2 GM/50 ML BAG ONE (06:10)
[2020-03-29] MEDS ORDERED: Buffered Lidocaine 1% SYRIN 1 ml INTRADERM ONE (06:10)
[2020-03-29] MEDS ORDERED: ceFAZolin 1 GM ADVAN(*) 1 GM ADDV.VIAL IVPB ONE (06:10)
[2020-03-29] MEDS ORDERED: fentaNYL 100 mcg/2 ml 50 MCG/ML VIAL ONE ×3 (07:11→10:12)
[2020-03-29] MEDS ORDERED: Rocuronium 50 mg VIAL 10 mg/ml 5 ml VIAL (50 mg) ONE ×2 (07:58→09:19)
[2020-03-29] MEDS ORDERED: Succinylcholine 200 mg VIAL 20 mg/ml 10 ml VIAL (200 mg) ONE (08:02)
[2020-03-29] MEDS ORDERED: Propofol 10 MG/ML 20 ML BTL ONE (08:02)
[2020-03-29] MEDS ORDERED: Lidocaine 2% PF 5 ML VIAL ONE (08:02)
[2020-03-29] MEDS ORDERED: Phenylephrine 40 mcg/mL 10mL (400mcg) SYRINGE ONE (08:02)
[2020-03-29] MEDS ORDERED: Etomidate 20 mg/10 ml 2 MG/ML 10 ml VIAL ONE (08:02)
[2020-03-29] MEDS ORDERED: Dexamethasone IV 4 MG/ML VIAL 1 ml VIAL ONE (08:02)
[2020-03-29] MEDS ORDERED: Naloxone 0.4 mg VIAL 0.4 mg/ml 1 ml VIAL IV PRN (08:24)
[2020-03-29] MEDS ORDERED: Ondansetron 4 mg VIAL 2 MG/ML 2 ml VIAL ONE (09:56)
[2020-03-29] MEDS ORDERED: HYDROmorphone 1 MG/1 ML SYRINGE ONE ×3 (10:21→10:59)
[2020-03-29] MEDS ORDERED: Magnesium Hydroxide LIQ 30 ML UDC PO PRN (10:34)
[2020-03-29] MEDS ORDERED: diPHENhydraMINE IV 50 MG/ML 1 ml VIAL (BENADRYL) IV PRN (10:34)
[2020-03-29] MEDS ORDERED: Lactulose 30 ml UDC PO PRN (10:34)
[2020-03-29] MEDS ORDERED: diPHENhydraMINE 25 mg TAB PO PRN (10:34)
[2020-03-29] MEDS ORDERED: Ondansetron 4 mg VIAL 2 MG/ML 2 ml VIAL IV PRN (10:34)
[2020-03-29] MEDS ORDERED: Ondansetron ODT 4 mg TAB 4 MG TAB PO PRN (10:34)
[2020-03-29] MEDS ORDERED: Dextrose 50% Syringe 50 ml 25 GM/50 ML SYRINGE IV PUSH PRN (10:54)
[2020-03-29] MEDS: HYDROmorphone 1 MG/1 ML SYRINGE IV PRN ×2 (11:02→11:11)
[2020-03-29] MEDS: Lactated Ringers 1000 ml BAG 1,000 ML IV SCH ×2 (12:13→22:12)
[2020-03-29] MEDS: Insulin LISPRO 100 units/ml(*) SUBCUT SCH ×3 (13:40→21:50)
[2020-03-29 13:48] LABS: Hepatitis B Surface Antigen Nonreactive (Nonreactive)
[2020-03-29 14:06] LABS: HIV 4th Generation Nonreactive (Nonreactive); Hepatitis C Antibody Negative (Negative)
[2020-03-29] MEDS: ceFAZolin 1 GM ADVAN(*) 1 GM in NS 0.9% 50 ML 50 ML IVPB SCH (16:02)
[2020-03-29] MEDS: Magnesium Hydroxide LIQ 30 ML UDC PO SCH (21:35)
[2020-03-30] MEDS: ceFAZolin 1 GM ADVAN(*) 1 GM in NS 0.9% 50 ML 50 ML IVPB SCH ×2 (00:04→08:09)
[2020-03-30 06:11] LABS: Hematocrit 36 % (42-52); Hemoglobin 12.3 g/dL (14.0-18.0); Mean Platelet Volume 8.5 fL (7.4-10.4); Platelet Count 141 10^3/uL (150-450)
[2020-03-30 07:44] LABS: Calcium 8.5 mg/dL (8.6-10.3)
[2020-03-30 07:50] LABS: BUN/Creatinine Ratio 25.5 (8-20); EGFR African American 78.5 (>60); EGFR Non-African American 64.9 (>60)
[2020-03-30] MEDS: Insulin LISPRO 100 units/ml(*) SUBCUT SCH ×4 (08:24→23:20)
[2020-03-30 08:39] LABS: Potassium 4.2 mmol/L (3.5-5.0)
[2020-03-30] MEDS: CMC:Pravastatin 20 mg TAB (NF) PO SCH (09:04)
[2020-03-30] MEDS: Vitamin THERAPEUTIC TAB PO SCH (09:04)
[2020-03-30] MEDS: GLIMEPIRIDE 2 MG PO SCH (09:05)
[2020-03-30] MEDS: Magnesium Hydroxide LIQ 30 ML UDC PO SCH ×2 (09:07→22:54)
[2020-03-30] MEDS ORDERED: CMC:Meloxicam 7.5 mg TAB (NF) PO SCH (12:00)
[2020-03-30] MEDS: Enoxaparin 40 MG/0.4 ML SYR(*) SUBCUT SCH (12:27)
[2020-03-31 04:50] LABS: Hematocrit 36 % (42-52); Hemoglobin 12.3 g/dL (14.0-18.0); Mean Platelet Volume 7.9 fL (7.4-10.4); Platelet Count 152 10^3/uL (150-450)
[2020-03-31] MEDS: GLIMEPIRIDE 2 MG PO SCH (09:16)
[2020-03-31] MEDS: CMC:Pravastatin 20 mg TAB (NF) PO SCH (09:16)
[2020-03-31] MEDS: Vitamin THERAPEUTIC TAB PO SCH (09:16)
[2020-03-31] MEDS: Magnesium Hydroxide LIQ 30 ML UDC PO SCH ×2 (09:17→22:09)
[2020-03-31] MEDS: Insulin LISPRO 100 units/ml(*) SUBCUT SCH ×4 (09:18→22:10)
[2020-03-31 11:23] LABS: ABS Basophils 0.1 10^3/ul (0-0.2); ABS Eosinophils 0.4 10^3/ul (0-0.6); ABS Lymphocytes 1.1 10^3/ul (1.0-4.8); ABS Monocytes 1.5 10^3/ul (0-0.8); Eosinophil % 3.7 %; Lymphocyte % 10.4 %; Mean Corpuscular HGB Conc 34 g/dL (31-36); Mean Corpuscular Hemoglobin 33 pg (27-31); Mean Corpuscular Volume 99 fL (80-94); Red Blood Count 3.64 10^6 /uL (4.18-5.48); Red Cell Distribution Width 14 % (10-15); White Blood Count 10.5 10^3/uL (3.5-10.8)
[2020-03-31] MEDS: Enoxaparin 40 MG/0.4 ML SYR(*) SUBCUT SCH (12:25)
[2020-04-01 05:29] LABS: Hematocrit 37 % (42-52); Hemoglobin 12.7 g/dL (14.0-18.0); Platelet Count 164 10^3/uL (150-450)
[2020-04-01 07:37] VITALS: BP 112/54
[2020-04-01] MEDS: Vitamin THERAPEUTIC TAB PO SCH (08:33)
[2020-04-01] MEDS: CMC:Pravastatin 20 mg TAB (NF) PO SCH (08:34)
[2020-04-01] MEDS: GLIMEPIRIDE 2 MG PO SCH (08:34)
[2020-04-01] MEDS: Magnesium Hydroxide LIQ 30 ML UDC PO SCH (08:35)
[2020-04-01] MEDS: Insulin LISPRO 100 units/ml(*) SUBCUT SCH (08:37)
== END 2020-04-01 08:50 | DRG 982 ==
LOC: OR 06:01 → SSU 11:46
PROVIDERS: ADMIT Orthopaedic Surgery; ATTEND Orthopaedic Surgery

== ENCOUNTER 2020-04-01 07:32 | Inpatient (IN) ==
[2020-04-01] MEDS ORDERED: Magnesium Hydroxide LIQ 30 ML UDC PO PRN (11:54)
[2020-04-01] MEDS ORDERED: Dextrose 50% Syringe 50 ml 25 GM/50 ML SYRINGE IV PUSH PRN (12:12)
[2020-04-01] MEDS: Enoxaparin 40 MG/0.4 ML SYR SUBCUT SCH (12:26)
[2020-04-02] MEDS: Aspirin EC 81 mg TAB.EC (enteric coated) PO SCH (08:19)
[2020-04-02] MEDS: CMCS:Pravastatin 20 mg TAB (NF) PO SCH (08:20)
[2020-04-02] MEDS: GLIMEPIRIDE 2 MG PO SCH (08:20)
[2020-04-02] MEDS: Enoxaparin 40 MG/0.4 ML SYR SUBCUT SCH (12:18)
[2020-04-03] MEDS: Aspirin EC 81 mg TAB.EC (enteric coated) PO SCH (08:19)
[2020-04-03] MEDS: GLIMEPIRIDE 2 MG PO SCH (08:21)
[2020-04-03] MEDS: CMCS:Pravastatin 20 mg TAB (NF) PO SCH (09:30)
[2020-04-03] MEDS: Enoxaparin 40 MG/0.4 ML SYR SUBCUT SCH (11:53)
[2020-04-04 06:52] LABS: ABS Eosinophils 0.5 10^3/ul (0-0.6); ABS Lymphocytes 1.1 10^3/ul (1.0-4.8); ABS Monocytes 1.4 10^3/ul (0-0.8); ABS Neutrophils 6.8 10^3/ul (1.5-7.7); Eosinophil % 4.7 %; Hematocrit 36 % (42-52); Hemoglobin 12.5 g/dL (14.0-18.0); Lymphocyte % 11.4 %; Mean Corpuscular HGB Conc 34 g/dL (31-36); Mean Corpuscular Hemoglobin 33 pg (27-31); Mean Corpuscular Volume 98 fL (80-94); Mean Platelet Volume 8.3 fL (7.4-10.4); Nucleated Red Blood Cells % 0.1; Platelet Count 222 10^3/uL (150-450); Red Blood Count 3.73 10^6 /uL (4.18-5.48); Red Cell Distribution Width 13 % (10-15); White Blood Count 9.8 10^3/uL (3.5-10.8)
[2020-04-04 07:10] LABS: Albumin 3.3 g/dL (3.2-5.2); Albumin/Globulin Ratio 1.1 (1-3); BUN/Creatinine Ratio 27.6 (8-20); Calcium 8.9 mg/dL (8.6-10.3); EGFR African American 89.7 (>60); EGFR Non-African American 74.2 (>60); Globulin 3.1 g/dL (2-4); Total Bilirubin 0.7 mg/dL (0.2-1.0); Total Protein 6.4 g/dL (6.4-8.9)
[2020-04-04] MEDS: GLIMEPIRIDE 2 MG PO SCH (08:35)
[2020-04-04] MEDS: CMCS:Pravastatin 20 mg TAB (NF) PO SCH (08:36)
[2020-04-04] MEDS: Aspirin EC 81 mg TAB.EC (enteric coated) PO SCH (08:36)
[2020-04-04] MEDS: Enoxaparin 40 MG/0.4 ML SYR SUBCUT SCH (12:05)
[2020-04-04] MEDS: HEMORRHOIDAL PR PRN (20:30)
[2020-04-04] MEDS: Senna TAB 8.6 mg TAB PO PRN (21:27)
[2020-04-05] MEDS: CMCS:Pravastatin 20 mg TAB (NF) PO SCH (08:55)
[2020-04-05] MEDS: GLIMEPIRIDE 2 MG PO SCH (08:55)
[2020-04-05] MEDS: Aspirin EC 81 mg TAB.EC (enteric coated) PO SCH (08:55)
[2020-04-05] MEDS: Enoxaparin 40 MG/0.4 ML SYR SUBCUT SCH (12:01)
[2020-04-06] MEDS: CMCS:Pravastatin 20 mg TAB (NF) PO SCH (08:34)
[2020-04-06] MEDS: GLIMEPIRIDE 2 MG PO SCH (08:35)
[2020-04-06] MEDS: Aspirin EC 81 mg TAB.EC (enteric coated) PO SCH (08:35)
[2020-04-06] MEDS: Enoxaparin 40 MG/0.4 ML SYR SUBCUT SCH (11:32)
[2020-04-07] MEDS: GLIMEPIRIDE 2 MG PO SCH (08:53)
[2020-04-07] MEDS: CMCS:Pravastatin 20 mg TAB (NF) PO SCH (08:53)
[2020-04-07] MEDS: Aspirin EC 81 mg TAB.EC (enteric coated) PO SCH (08:53)
[2020-04-07] MEDS: Enoxaparin 40 MG/0.4 ML SYR SUBCUT SCH (14:05)
[2020-04-08] MEDS: Aspirin EC 81 mg TAB.EC (enteric coated) PO SCH (08:52)
[2020-04-08] MEDS: GLIMEPIRIDE 2 MG PO SCH (08:53)
[2020-04-08] MEDS: CMCS:Pravastatin 20 mg TAB (NF) PO SCH (08:54)
[2020-04-08] MEDS: Enoxaparin 40 MG/0.4 ML SYR SUBCUT SCH (13:26)
[2020-04-08] MEDS: Senna TAB 8.6 mg TAB PO PRN (20:03)
[2020-04-09] MEDS: Aspirin EC 81 mg TAB.EC (enteric coated) PO SCH (10:21)
[2020-04-09] MEDS: CMCS:Pravastatin 20 mg TAB (NF) PO SCH (10:23)
[2020-04-09] MEDS: Enoxaparin 40 MG/0.4 ML SYR SUBCUT SCH (12:35)
[2020-04-10] MEDS: CMCS:Pravastatin 20 mg TAB (NF) PO SCH (09:46)
[2020-04-10] MEDS: Aspirin EC 81 mg TAB.EC (enteric coated) PO SCH (09:46)
[2020-04-10] MEDS: Enoxaparin 40 MG/0.4 ML SYR SUBCUT SCH (13:38)
[2020-04-10] MEDS: HEMORRHOIDAL PR PRN (22:05)
[2020-04-11 05:43] LABS: ABS Basophils 0.1 10^3/ul (0-0.2); ABS Eosinophils 0.7 10^3/ul (0-0.6); ABS Lymphocytes 1.4 10^3/ul (1.0-4.8); ABS Monocytes 1.2 10^3/ul (0-0.8); ABS Neutrophils 8.4 10^3/ul (1.5-7.7); Hematocrit 36 % (42-52); Hemoglobin 12.4 g/dL (14.0-18.0); Lymphocyte % 11.6 %; Mean Corpuscular HGB Conc 34 g/dL (31-36); Mean Corpuscular Hemoglobin 33 pg (27-31); Mean Corpuscular Volume 96 fL (80-94); Platelet Count 298 10^3/uL (150-450); Red Cell Distribution Width 13 % (10-15); White Blood Count 11.9 10^3/uL (3.5-10.8)
[2020-04-11 06:00] LABS: Albumin 3.4 g/dL (3.2-5.2); Albumin/Globulin Ratio 1.2 (1-3); BUN/Creatinine Ratio 23.2 (8-20); EGFR African American 88.7 (>60); EGFR Non-African American 73.3 (>60); Globulin 2.9 g/dL (2-4); Potassium 4.1 mmol/L (3.5-5.0); Total Bilirubin 0.5 mg/dL (0.2-1.0); Total Protein 6.3 g/dL (6.4-8.9)
[2020-04-11] MEDS: HEMORRHOIDAL PR PRN (08:39)
[2020-04-11] MEDS: CMCS:Pravastatin 20 mg TAB (NF) PO SCH (09:03)
[2020-04-11] MEDS: Aspirin EC 81 mg TAB.EC (enteric coated) PO SCH (09:03)
[2020-04-11] MEDS: Enoxaparin 40 MG/0.4 ML SYR SUBCUT SCH (11:33)
[2020-04-12] MEDS: Aspirin EC 81 mg TAB.EC (enteric coated) PO SCH (08:31)
[2020-04-12] MEDS: CMCS:Pravastatin 20 mg TAB (NF) PO SCH (08:32)
[2020-04-12] MEDS: Enoxaparin 40 MG/0.4 ML SYR SUBCUT SCH (12:45)
[2020-04-13] MEDS: Aspirin EC 81 mg TAB.EC (enteric coated) PO SCH (08:56)
[2020-04-13] MEDS: CMCS:Pravastatin 20 mg TAB (NF) PO SCH (08:56)
[2020-04-13] MEDS: Enoxaparin 40 MG/0.4 ML SYR SUBCUT SCH (12:53)
[2020-04-14 07:13] LABS: ABS Basophils 0.1 10^3/ul (0-0.2); ABS Eosinophils 0.8 10^3/ul (0-0.6); ABS Lymphocytes 1.7 10^3/ul (1.0-4.8); ABS Monocytes 1.1 10^3/ul (0-0.8); ABS Neutrophils 5.9 10^3/ul (1.5-7.7); Eosinophil % 8.4 %; Hematocrit 36 % (42-52); Hemoglobin 12.3 g/dL (14.0-18.0); Mean Corpuscular HGB Conc 35 g/dL (31-36); Mean Corpuscular Hemoglobin 33 pg (27-31); Mean Corpuscular Volume 96 fL (80-94); Mean Platelet Volume 8.6 fL (7.4-10.4); Platelet Count 298 10^3/uL (150-450); Red Cell Distribution Width 13 % (10-15); White Blood Count 9.6 10^3/uL (3.5-10.8)
[2020-04-14] MEDS: Aspirin EC 81 mg TAB.EC (enteric coated) PO SCH (09:37)
[2020-04-14] MEDS: CMCS:Pravastatin 20 mg TAB (NF) PO SCH (09:38)
[2020-04-14] MEDS: Enoxaparin 40 MG/0.4 ML SYR SUBCUT SCH (11:52)
[2020-04-15 05:34] VITALS: BP 108/58
[2020-04-15] MEDS: Aspirin EC 81 mg TAB.EC (enteric coated) PO SCH (08:28)
[2020-04-15] MEDS: CMCS:Pravastatin 20 mg TAB (NF) PO SCH (08:29)
[2020-04-15] MEDS: Enoxaparin 40 MG/0.4 ML SYR SUBCUT SCH (12:00)
== END 2020-04-15 16:00 | disposition home health service (06) | DRG 561 ==
LOC: PMRU 09:27
PROVIDERS: ADMIT Physical Medicine & Rehabilitation; ATTEND Physical Medicine & Rehabilitation

== ENCOUNTER 2022-09-13 14:42 | Inpatient (IN) ==
[2022-09-13 15:43] LABS: ABS Basophils 0.1 10^3/ul (0-0.2); ABS Eosinophils 0.1 10^3/ul (0-0.6); ABS Lymphocytes 0.9 10^3/ul (1.0-4.8); ABS Monocytes 1.1 10^3/ul (0-0.8); ABS Neutrophils 8.7 10^3/ul (1.5-7.7); Eosinophil % 1.3 %; Hematocrit 37 % (42-52); Hemoglobin 12.4 g/dL (14.0-18.0); Lymphocyte % 8.2 %; Mean Corpuscular HGB Conc 33 g/dL (31-36); Mean Corpuscular Hemoglobin 32 pg (27-31); Mean Corpuscular Volume 98 fL (80-94); Mean Platelet Volume 8.6 fL (7.4-10.4); Platelet Count 167 10^3/uL (150-450); Red Blood Count 3.81 10^6 /uL (4.18-5.48); Red Cell Distribution Width 13 % (10-15); White Blood Count 10.8 10^3/uL (3.5-10.8)
[2022-09-13 16:13] LABS: Albumin 3.8 g/dL (3.2-5.2); Albumin/Globulin Ratio 1.7 (1-3); Calcium 8.7 mg/dL (8.6-10.3); Globulin 2.2 g/dL (2-4); Magnesium 1.5 mg/dL (1.9-2.7); Potassium 4.5 mmol/L (3.5-5.0); Total Bilirubin 0.6 mg/dL (0.2-1.0); eGFR CKD-EPI 59.7 (>60)
[2022-09-13 16:20] LABS: T4, Total 9.88 mcg/dL (6.09-12.23)
[2022-09-13 16:24] LABS: TSH Ultra Thyroid Stim Horm 1.21 mcIU/mL (0.34-5.60)
[2022-09-13] MEDS ORDERED: Magnesium Sulfate 2 gm BAG 2 GM/50 ML BAG IVPB ONE (16:57)
[2022-09-13 17:37] LABS: High Sensitivity Troponin 1 Hr 801 pg/mL (<20)
[2022-09-13] MEDS ORDERED: Digoxin IV 0.5 MG/2 ML AMP (0.25 MG/ML) IV SLOW PU ONE (18:10)
[2022-09-13 18:53] LABS: Activated Partial Thrombo Time 29.8 seconds (26.0-38.0)
[2022-09-13] MEDS ORDERED: Furosemide 20 mg/2 ml IV VIAL IV STA (18:56)
[2022-09-13 19:31] LABS: HDL Cholesterol 41.9 mg/dL
[2022-09-13 19:51] LABS: Ferritin 187.2 ng/mL (24-336)
[2022-09-13] MEDS: Heparin 5000 UNITS/ML 1 mL VIAL IV SCH (19:53)
[2022-09-13] MEDS: Heparin DRIP 25,000 UNITS BAG 25,000 UNITS/500 ML BAG IV SCH (20:01)
[2022-09-13] MEDS ORDERED: Dextrose 50% Syringe 50 ml 25 GM/50 ML SYRINGE IV PUSH PRN (21:05)
[2022-09-14] LABS: ABS Eosinophils 0.3 10^3/ul (0-0.6); ABS Lymphocytes 1.7 10^3/ul (1.0-4.8); ABS Monocytes 1.1 10^3/ul (0-0.8); ABS Neutrophils 7.2 10^3/ul (1.5-7.7); Eosinophil % 3.1 %; Hematocrit 39 % (42-52); Hemoglobin 12.8 g/dL (14.0-18.0); Mean Corpuscular HGB Conc 33 g/dL (31-36); Mean Corpuscular Hemoglobin 32 pg (27-31); Mean Corpuscular Volume 98 fL (80-94); Mean Platelet Volume 8.6 fL (7.4-10.4); Platelet Count 173 10^3/uL (150-450); Red Blood Count 3.95 10^6 /uL (4.18-5.48); Red Cell Distribution Width 13 % (10-15); White Blood Count 10.4 10^3/uL (3.5-10.8)
[2022-09-14 00:45] LABS: eGFR CKD-EPI 64.1 (>60)
[2022-09-14] MEDS: Heparin 5000 UNITS/ML 1 mL VIAL IV SCH ×3 (03:21→19:36)
[2022-09-14 06:10] LABS: ABS Eosinophils 0.3 10^3/ul (0-0.6); ABS Lymphocytes 1.4 10^3/ul (1.0-4.8); ABS Neutrophils 7.7 10^3/ul (1.5-7.7); Eosinophil % 3.3 %; Hematocrit 41 % (42-52); Hemoglobin 13.3 g/dL (14.0-18.0); Mean Corpuscular HGB Conc 33 g/dL (31-36); Mean Corpuscular Hemoglobin 32 pg (27-31); Mean Corpuscular Volume 99 fL (80-94); Mean Platelet Volume 8.6 fL (7.4-10.4); Platelet Count 167 10^3/uL (150-450); Red Blood Count 4.11 10^6 /uL (4.18-5.48); Red Cell Distribution Width 14 % (10-15); White Blood Count 10.4 10^3/uL (3.5-10.8)
[2022-09-14 06:46] LABS: CO2 Carbon Dioxide 21 mmol/L (22-32); Calcium 8.8 mg/dL (8.6-10.3); Chloride 103 mmol/L (101-111); Sodium 140 mmol/L (135-145)
[2022-09-14 06:49] LABS: Anion Gap 16 mmol/L (2-11)
[2022-09-14 06:51] LABS: Blood Urea Nitrogen 23 mg/dL (6-24); Glucose 143 mg/dL (70-100); eGFR CKD-EPI 59.1 (>60)
[2022-09-14] MEDS ORDERED: Furosemide 40 mg/4 ml IV VIAL IV ONE (09:07)
[2022-09-14 09:42] LABS: Magnesium 1.8 mg/dL (1.9-2.7); Potassium Redraw 4.5 mmol/L (3.5-5.0)
[2022-09-14] MEDS: Aspirin EC 81 mg TAB.EC (enteric coated) PO SCH (10:08)
[2022-09-14 10:47] LABS: Calcium 8.8 mg/dL (8.6-10.3); HDL Cholesterol 42.6 mg/dL; Potassium 4.4 mmol/L (3.5-5.0); eGFR CKD-EPI 62.8 (>60)
[2022-09-14] MEDS: CMCS: Pravastatin 20 mg TAB (NF) PO SCH (11:14)
[2022-09-14] MEDS ORDERED: Sulfur Hexaflouride MICROSPHR 25 MG VIAL ONE (11:58)
[2022-09-14] MEDS ORDERED: Magnesium Sulfate 2 gm BAG 2 GM/50 ML BAG IVPB ONE (13:39)
[2022-09-14 14:28] LABS: High Sensitivity Troponin 1 Hr 916 pg/mL (<20)
[2022-09-14] MEDS: Heparin DRIP 25,000 UNITS BAG 25,000 UNITS/500 ML BAG IV SCH (17:31)
[2022-09-15] MEDS: Heparin DRIP 25,000 UNITS BAG 25,000 UNITS/500 ML BAG IV SCH ×2 (07:12→21:58)
[2022-09-15 08:47] LABS: ABS Eosinophils 0.4 10^3/ul (0-0.6); ABS Lymphocytes 1.4 10^3/ul (1.0-4.8); ABS Neutrophils 6.1 10^3/ul (1.5-7.7); Eosinophil % 4.7 %; Hematocrit 40 % (42-52); Hemoglobin 13.4 g/dL (14.0-18.0); Lymphocyte % 15.8 %; Mean Corpuscular HGB Conc 34 g/dL (31-36); Mean Corpuscular Hemoglobin 33 pg (27-31); Mean Corpuscular Volume 97 fL (80-94); Mean Platelet Volume 8.6 fL (7.4-10.4); Platelet Count 181 10^3/uL (150-450); Red Blood Count 4.09 10^6 /uL (4.18-5.48); Red Cell Distribution Width 13 % (10-15)
[2022-09-15 09:05] LABS: Calcium 8.8 mg/dL (8.6-10.3); Magnesium 2.2 mg/dL (1.9-2.7); Potassium 4.5 mmol/L (3.5-5.0); eGFR CKD-EPI 53.4 (>60)
[2022-09-15] MEDS: Aspirin EC 81 mg TAB.EC (enteric coated) PO SCH (09:44)
[2022-09-15] MEDS: CMCS: Pravastatin 20 mg TAB (NF) PO SCH (09:46)
[2022-09-15] MEDS: Iron Sucrose 200 MG in NS 0.9% 100 ml BAG 100 ML IVPB SCH (12:11)
[2022-09-16 03:41] LABS: ABS Eosinophils 0.5 10^3/ul (0-0.6); ABS Lymphocytes 1.2 10^3/ul (1.0-4.8); ABS Monocytes 1.1 10^3/ul (0-0.8); ABS Neutrophils 6.5 10^3/ul (1.5-7.7); Eosinophil % 5.8 %; Hematocrit 38 % (42-52); Hemoglobin 12.5 g/dL (14.0-18.0); Lymphocyte % 12.3 %; Mean Corpuscular HGB Conc 33 g/dL (31-36); Mean Corpuscular Hemoglobin 32 pg (27-31); Mean Corpuscular Volume 98 fL (80-94); Mean Platelet Volume 8.5 fL (7.4-10.4); Platelet Count 174 10^3/uL (150-450); Red Cell Distribution Width 13 % (10-15); White Blood Count 9.4 10^3/uL (3.5-10.8)
[2022-09-16 04:46] LABS: Calcium 8.6 mg/dL (8.6-10.3); Magnesium 1.9 mg/dL (1.9-2.7); Potassium 4.1 mmol/L (3.5-5.0); eGFR CKD-EPI 59.7 (>60)
[2022-09-16] MEDS: CMCS: Pravastatin 20 mg TAB (NF) PO SCH (08:19)
[2022-09-16] MEDS: Aspirin EC 81 mg TAB.EC (enteric coated) PO SCH (08:20)
[2022-09-16] MEDS: Iron Sucrose 200 MG in NS 0.9% 100 ml BAG 100 ML IVPB SCH (08:21)
[2022-09-16] MEDS: Heparin DRIP 25,000 UNITS BAG 25,000 UNITS/500 ML BAG IV SCH (13:02)
[2022-09-17] MEDS: Heparin DRIP 25,000 UNITS BAG 25,000 UNITS/500 ML BAG IV SCH (03:28)
[2022-09-17 07:07] LABS: ABS Eosinophils 0.5 10^3/ul (0-0.6); ABS Lymphocytes 1.3 10^3/ul (1.0-4.8); ABS Neutrophils 6.2 10^3/ul (1.5-7.7); Eosinophil % 5.6 %; Hematocrit 39 % (42-52); Hemoglobin 12.9 g/dL (14.0-18.0); Lymphocyte % 14.1 %; Mean Corpuscular HGB Conc 34 g/dL (31-36); Mean Corpuscular Hemoglobin 32 pg (27-31); Mean Corpuscular Volume 96 fL (80-94); Mean Platelet Volume 8.7 fL (7.4-10.4); Platelet Count 167 10^3/uL (150-450); Red Blood Count 3.99 10^6 /uL (4.18-5.48); Red Cell Distribution Width 14 % (10-15)
[2022-09-17 07:34] LABS: Magnesium 1.9 mg/dL (1.9-2.7); Potassium 4.4 mmol/L (3.5-5.0); eGFR CKD-EPI 60.9 (>60)
[2022-09-17] MEDS: Aspirin EC 81 mg TAB.EC (enteric coated) PO SCH (08:55)
[2022-09-17] MEDS: CMCS: Pravastatin 20 mg TAB (NF) PO SCH (08:56)
[2022-09-17] MEDS ORDERED: Midazolam 5 mg/5 ml VIAL 1 mg/ml 5 ml VIAL (5 mg) ONE ×2 (09:49→12:45)
[2022-09-17] MEDS ORDERED: fentaNYL 100 mcg/2 ml 50 MCG/ML VIAL ONE ×2 (09:50→12:45)
[2022-09-17] MEDS ORDERED: VERAPAMIL 2.5 MG/ML 2 ML VIAL ** 5 mg/2 ml ONE (09:50)
[2022-09-17] MEDS ORDERED: Heparin 1,000 UNIT/ML 10 ml (10,000 UNITS) CATHLAB/DIALYSIS ONE (09:50)
[2022-09-17] MEDS ORDERED: nitroGLYCERIN DRIP 25,000 MCG/250 ML BTL ONE (09:51)
[2022-09-17] MEDS ORDERED: Iohexol 350 (CONTRAST) 100 ML PAK IV ONE ×3 (09:51→14:27)
[2022-09-17] MEDS ORDERED: Heparin 2 UNITS/ML 1000 mls 2,000 ML IV ONE (09:51)
[2022-09-17] MEDS ORDERED: Lidocaine 1% MPF 5 ML VIAL ONE (09:51)
[2022-09-17] MEDS: Iron Sucrose 200 MG in NS 0.9% 100 ml BAG 100 ML IVPB SCH (09:54)
[2022-09-17] MEDS ORDERED: NS 0.9% 1000 ml BAG 1,000 ML IV SCH (15:15)
[2022-09-18 06:41] LABS: Calcium 9.2 mg/dL (8.6-10.3); Potassium 4.9 mmol/L (3.5-5.0)
[2022-09-18 06:47] LABS: HDL Cholesterol 45.2 mg/dL; eGFR CKD-EPI 56.9 (>60)
[2022-09-18] MEDS: Aspirin EC 81 mg TAB.EC (enteric coated) PO SCH (08:52)
[2022-09-18] MEDS: Iron Sucrose 200 MG in NS 0.9% 100 ml BAG 100 ML IVPB SCH (08:53)
[2022-09-18] MEDS: CMCS: Pravastatin 20 mg TAB (NF) PO SCH (08:54)
[2022-09-18 13:52] VITALS: BP 112/58
== END 2022-09-18 16:10 | disposition home or self-care (01) | DRG 280 ==
LOC: ED 14:42 → EDHOLD 14:42 → SUATTDRO 19:58 → MEDTELE 09-14 12:35
PROVIDERS: ADMIT Internal Medicine; ATTEND Internal Medicine